=== PATIENT | male | born 1960 | race Caucasian/White ===

== ENCOUNTER → 2017-08-08 | Outpatient (CLI) | payer BC ==
[~2017-08-08] MED LIST: ASPI325T39 PO; INDO-24 PO; PROB1TAB16 PO
[2017-08-08 13:03] LABS: BASO % 0.5 %; BASO ABS # 0.05 K/uL (0-0.2); COMPLETE YES; EOS % 4.1 %; HEMATOCRIT 49.2 % (42-52); IG% 0.3 %; LYMPH ABS # 1.64 K/uL (1.2-3.4); MEAN CELL VOLUME 95.9 fL (80-100); MEAN CORPUSCULAR HEMOGLOBIN 34.1 pg (25-34); MEAN CORPUSCULAR HGB CONC 35.6 g/dl (32-36); MEAN PLATELET VOLUME 10.2 fL (7.4-10.4); MONO % 11.8 %; NEUT % 67.3 %; PLATELET COUNT 324 K/uL (130-400); RED BLOOD COUNT 5.13 M/uL (4.7-6.1); WHITE BLOOD COUNT 10.27 K/uL (4.8-10.8)
[2017-08-08 13:22] LABS: ALT/SGPT 37 U/L (12-78); BLOOD UREA NITROGEN 20 mg/dl (7-18); BUN/CREATININE RATIO 20.1 (10-20); CALCIUM 9.6 mg/dl (8.5-10.1); CARBON DIOXIDE 26 mmol/L (21-32); CHLORIDE 104 mmol/L (98-107); CREATININE 0.99 mg/dl (0.60-1.40); GLUCOSE 116 mg/dl (70-99); POTASSIUM 4.4 mmol/L (3.5-5.1); SODIUM 139 mmol/L (136-145)
[2017-08-08 13:31] LABS: ALB/GLOB RATIO 1.1 (0.9-2); ALKALINE PHOSPHATASE 60 U/L (45-117); AST/SGOT 33 U/L (15-37); TOTAL IRON BINDING CAPACITY 380 mcg/dl (250-450)
== END | disposition home or self-care (01) ==
LOC: C.LAB1850 11:21
PROVIDERS: ATTEND Physician Assistant
DX: Z00.00 Encounter for general adult medical examination without abnormal findings (principal); R53.81 Other malaise

== ENCOUNTER 2019-04-06 19:29 | Inpatient (IN) ==
[2019-04-06] MEDS ORDERED: PIPERACILLIN/TAZOBACTAM 4.5 GM/120 ML BAG IV ONE (20:28)
[2019-04-06] MEDS ORDERED: PIPERACILL/TAZOBAC CONSULT ACTIVE PRN (20:28)
[2019-04-06] MEDS ORDERED: SODIUM CHLORIDE 0.9% 1000ML 1,000 ML IV SCH (20:30)
--- NOTE | 2019-04-06 21:31 | Emergency Department Note ---
Entered by Dariana Reynoso acting as a scribe for Steven Erickson MD History of Present Illness General Chief complaint: Referred by Doctor Stated complaint: SENT FOR ANTIBIOTIC IV Time Seen by Provider: 04/06/19 20:11 Source: patient History of Present Illness Provider complaint: abdominal pain Onset (ago): day(s) 6 Location: abdomen (left lower) Severity: severe Maximum Pain Intensity: 4 Relieved By: + medication (Tylenol) Associated symptoms: + diaphoresis, + fever/chills (+chills, -fever) and + other (+hematuria, +loss of appetite) The patient is a 58 year old male who presents to the Emergency Room with complaints of left lower abdominal pain. The patient states that he was referred by Dr. Caraballo for his CAT scan that showed that he had diverticulitis with an abscess. The patient states that on Tuesday night he had severe abdominal pain. The states that on Tuesday he did not leave his bed because of the pain. The patient reports that he was not able to urinate often at this time, but when he did he had blood in his urine. The patient notes that he had a loss of appetite, chills, and diaphoresis. He denies any fever. The patient states that today his pain is duller. The patient states that he has chronic swelling in his legs. He reports that he has a history of appendectomy and a hip replacement surgery. The patient reports that Tylenol relieves his pain. Home Medications Home Medications Medication Instructions Recorded Confirmed Type multivitamin 1 tab PO DAILY 04/06/19 04/06/19 History Allergies Allergy/AdvReac Type Severity Reaction Status Date / Time No Known Allergies Allergy Verified 04/06/19 20:56 Past Med/Surg History Surgical History History of hip replacement Hx of appendectomy Social History Feels Safe at Home: Yes Smoking Status: Current every day smoker Review of Systems See HPI for pertinent positives & negatives. and A total of 10 systems reviewed and were otherwise negative Physical Exam Vital Signs Vital Signs - 24 hr 04/06/19 19:34 04/06/19 21:58 Temperature 37.4 C Temperature Source Oral Sepsis Recent Fever Within 48 Hours No Sepsis Action Taken by Nursing No Action Required Pulse Rate 101 H Pulse Rate [Right Finger] 85 Respiratory Rate 16 Respiratory Effort / Characteristics Non-Labored Spontaneous Respiratory Depth Normal Blood Pressure 139/93 Blood Pressure [Left Arm] 162/106 H Blood Pressure Mean 108 Blood Pressure Mean [Left Arm] 124 Blood Pressure Position Sitting Pulse Oximetry 95 95 Oxygen Delivery Method Room Air General: Non-ill appearing middle aged male in no acute distress. HEENT: Normal cephalic atraumatic. Pupils are equal round and reactive to light. Extraocular movements are intact. Oropharynx is pink with moist mucous membranes. No swelling of the mouth lips or tongue. Neck: Supple with a midline trachea. No meningeal signs or stiffness, no JVD or bruits. No Stridor. Chest: Clear to auscultation bilaterally. No wheezes or rhonchi. No increased work of breathing. Heart: regular rate and rhythm. Abdomen: Moderate tenderness in left lower abdomen without peritonitis, nondistended without rebound guarding or rigidity. Extremities: No cyanosis clubbing or edema. No calf tenderness or asymmetry Spine/Back. Non tender to palpation. No CVA tenderness Skin: Good turgor without rashes. Neurologic exam: Cranial nerves two through 12 are intact. Motor and sensation are intact and symmetrical throughout. Course 2013: The patient was evaluated in room A9A, and a complete history and physical examination were performed. 2039: I discussed the patient's results with Dr. Ibrahim [facility] Radiology and he stated that the abscess did not required to be drained. He recommended more antibiotics. 2104: I reviewed the patient's [facility] He will evaluate the patient for further management. Reevaluation(s) Reevaluation #1: Dr. Ibrahim [facility] Radiology Time: 20:40 Reevaluation #2: Dr. Lopez [facility] Hospitalist Time: 21:05 Administered Medications Discontinued Medications Sodium Chloride (Nss 1000ml) 1,000 mls @ 999 mls/hr IV .Q1H1M HEIDI Stop: 04/06/19 21:30 Last Infusion: 04/06/19 22:09 Dose: 0 mls/hr Documented by: [id number] Admin: 04/06/19 21:01 Dose: 999 mls/hr Documented by: [id number] Piperacillin Sod/Tazobactam Sod (Zosyn) 4.5 gm in 120 mls @ 240 mls/hr IV NOW ONE Stop: 04/06/19 20:57 Last Infusion: 04/06/19 21:34 Dose: 0 mls/hr Documented by: [id number] Admin: 04/06/19 21:01 Dose: 240 mls/hr Documented by: [id number] Medical Decision Making Differential Diagnosis Differentials include diverticulitis, diverticular abscess, sepsis, electrolyte abnormalities, and metabolic derangement. Medical Records Attestation: I reviewed the patient's medical records. Home Medications Current Medication List: was personally reviewed by me Laboratory Data Attestation: I reviewed the patient's lab results. Lab Results 04/06/19 Range/Units 20:33 Lactate 1.0 (0.4-2.0) mmol/L Blood Pressure Blood Pressure Findings: Normal blood pressure MDM Narrative This patient comes in as described above. He was placed in room 89. He was sent over after his CAT scan showed diverticulitis with diverticular abscess. He had abdominal pain about 5 days or so ago and it was severe he was out of town he feels much better now and has some mild lower abdominal pain is had no fever. On exam, he has lower abdominal tenderness in the left but no peritonitis. The tenderness is mild. He does have a mildly elevated white count but no fever. I did review the CAT scan it does show diverticulitis with an abscess about 2 cm there may be multiple small abscess. This is concerning for microperforation. I did discuss the case with the radiologist who felt that this was not interventional radiology drainage as the area was small. I did discuss it with the ED pharmacist, Adri who recommended Zosyn and the patient was given Zosyn 4.5 g IV. He was given IV fluid bolus. Blood cultures were obt ained as well. I have discussed case with Dr. Jain who will see the patient in the ER for admission and IV antibiotics. Impression & Plan Diverticulitis of intestine with abscess, Abdominal pain, left lower quadrant Discharge Plan Visit Data Chief Complaint: Referred by Doctor Stated Complaint: SENT FOR ANTIBIOTIC IV ED Provider: Steven Erickson Discharge Problem: Diverticulitis of intestine with abscess, Abdominal pain, left lower quadrant Patient Disposition: Being Evaluated by Hospitalist Forms Stand Alone Forms: My [facility] [email or web address] Prescriptions Prescriptions: No Action multivitamin Tablet 1 tab PO DAILY RF: 0 Referrals Referrals: Rojelio Cope MD [Primary Care Provider] - Discharge Problem: Diverticulitis of intestine with abscess Qualifiers: Diverticulitis site: large intestine Diverticulitis bleeding: without bleeding Qualified Code(s): K57.20 - Diverticulitis of large intestine with perforation and abscess without bleeding The scribe's documentation has been prepared under my direction and personally reviewed by me in its entirety. I confirm that the note above accurately reflects all work, treatment, procedures, and medical decision making performed by me.
[2019-04-07] MEDS ORDERED: ACETAMINOPHEN 1000 MG/100 ML IV IV PRN (00:12)
[2019-04-07] MEDS ORDERED: PIPERACILL/TAZOBAC CONSULT ACTIVE PRN (00:12)
[2019-04-07] MEDS ORDERED: ONDANSETRON INJ 2 MG/ML 2 ML VIAL IV PRN (00:12)
[2019-04-07] MEDS: PIPERACILLIN/TAZOBACTAM 3.375 GM in DEXTROSE 5% 100 ML IV SCH ×3 (01:25→17:52)
[2019-04-07] MEDS: NSS + 20MEQ KCL 20 MEQ/1,000 ML BAG IV SCH ×3 (01:25→22:22)
[2019-04-07] MEDS: NICOTINE 14 MG/24 HR PATCH TD SCH (01:52)
--- NOTE | 2019-04-07 05:10 | History & Physical Report ---
Date of Service April 07, 2019 The patient was seen and admitted on April 06, 2019. Assessment & Plan (1) Diverticulitis of intestine with abscess: Acute sigmoid diverticulitis with multiple micro abscesses/left lower quadrant abdominal pain- NPO Continue Zosyn IV, and add Flagyl IV. Famotidine 20 mg IV every 12 hours. Acetaminophen 1 g IV every 8 hours PRN mild pain or temperature. Morphine sulfate 2 mg IV every 4 hours as needed severe pain NSS + KCl 20 mg once at her mils per hour. Follow serial laboratories. We will need general surgery consult. Present on Admission?: Yes (2) Abdominal pain, left lower quadrant: See above Present on Admission?: Yes History of Present Illness Chief Complaint: The patient presents to the emergency department with 6 days of worsening left lower quadrant abdominal discomfort, especially worsening over the past 24 hours. Primary Care Provider: Rojelio Cope MD The patient is a 58-year-old male who was seen by his PCP Dr. Cope earlier in the day, had been found to have sigmoid diverticulitis with an abscess on outpatient CT, and referred into the emergency department for further evaluation assessment. The patient notes the onset of abdominal pain in his left lower quadrant about 6 days ago, but had in particular worsened over the past 24 hours, and more recently now pain is somewhat improved prior to treatment. He has had no previous occurrence this type of pain. He has not had any recent travels or sick exposures, and has not had any questionable food intake. 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 Beliefs That Will Affect Care: None Current Living Situation: Spouse Other Information That Helps Us Care for You: No Feels Safe at Home: Yes Safety Concerns: Feels Safe At This Time Smoking Status: Heavy tobacco smoker Tobacco Type: cigarettes Do You Dip or Chew Tobacco: No Tobacco Cessation Education Requested by Patient: No Hx Alcohol Use: Yes Alcohol type: beer Hx Substance Use: No Review of Systems Review of Systems: The patient denies chest pain, palpitations, shortness of breath, dyspnea on exertion, cough, lower extremity swelling, sore throat, fevers, chills, sweats, weight change, fatigue, nausea, vomiting, blood in urine or stool, dysuria, urinary frequency or urgency, lightheadedness, dizziness, headache, memory loss, loss of consciousness, rash, abnormal bruising or bleeding, imbalance, focal or generalized weakness, numbness or tingling in arms or legs, generalized arthralgias or myalgias, back or neck pain, or night sweats. The review of systems is otherwise negative other than for that already noted above, and at least 10 systems have been reviewed. Physical Exam Physical Exam: The patient is awake, alert and oriented 3, well developed and well nourished, normocephalic and atraumatic, lying in bed and in no acute distress. HEENT--PERRL, EOMI, mucous membranes and oropharynx dry. Neck--supple. No JVD. No bruits. Thyroid normal, trachea midline, no adenopathy. Heart--normal S1 and S2. No murmurs, rubs or gallops. Lungs--clear bilaterally, no respiratory distress, no accessory muscle use. Abdomen--normal bowel sounds and soft. Mild left lower quadrant pain. Nondistended. Extremities--no cyanosis or clubbing. No edema. There are good distal pulses b/l. Dermatologic--normal skin turgor, normal color, no abnormal lymph nodes, no rash. Neurologic--cranial nerves II through XII grossly intact. Rheumatologic--normal range of motion. Psychiatric--normal affect. Results & Data Vital Signs (Past 12 Hours) Vital Signs Temp Pulse Pulse Resp BP BP Pulse Ox 04/07/19 00:25 99.0 F 86 14 135/87 94 04/06/19 23:35 95 04/06/19 21:58 85 162/106 H 95 04/06/19 19:34 99.3 F 101 H 16 139/93 95 Laboratory Results Laboratory Results 1.0 mmol/L (0.4-2.0) 04/06/19 20:33 Code Status & VTE Plan Code Status Full code VTE Prophylaxis Plan VTE Prophylaxis will be ordered: Yes (1) Diverticulitis of intestine with abscess Diverticulitis bleeding: without bleeding Diverticulitis site: large intestine Qualified Code(s): K57.20 - Diverticulitis of large intestine with perforation and abscess without bleeding
[2019-04-07] MEDS: metroNIDAZOLE 500 MG/100 ML BAG IV SCH ×2 (05:55→13:27)
[2019-04-07 07:48] LABS: Basophils # (auto) 0.05 K/uL (0-0.2); Basophils % (auto) 0.4 %; Eosinophils # (auto) 0.47 K/uL (0-0.5); Eosinophils % (auto) 3.8 %; Hematocrit (blood only) 41.4 % (42-52); Hemoglobin 14.4 g/dL (14.0-18.0); Immature Granulocytes # (auto) 0.07 K/uL (0.00-0.02); Immature Granulocytes % (auto) 0.6 %; Lymphocytes # (auto) 1.12 K/uL (1.2-3.4); Mean Corpuscular Hgb Conc 34.8 g/dL (32-36); Mean Corpuscular Volume 96.3 fL (80-100); Mean Platelet Volume 8.8 fL (7.4-10.4); Monocytes # (auto) 1.74 K/uL (0.11-0.59); Neutrophils # (auto) 8.99 K/uL (1.4-6.5); Neutrophils % (auto) 72.2 %; Platelet Count 368 K/uL (130-400); RDW Coefficient of Variation 13.8 % (11.5-14.5); RDW Standard Deviation 48.6 fL (36.4-46.3); White Blood Count 12.44 K/uL (4.8-10.8)
[2019-04-07 08:05] LABS: INR 1.1 (0.9-1.1); Partial Thromboplastin Time 26.2 Seconds (21.0-31.0); Prothrombin Time 10.9 Seconds (9.0-12.0)
--- NOTE | 2019-04-07 08:13 | Hospitalist Progress Note ---
Date of Service April 07, 2019 Assessment & Plan (1) Diverticulitis of intestine with abscess: Acute sigmoid diverticulitis with micro abscesses/left lower quadrant abdominal pain- Will ice chips Continue Zosyn IV, Famotidine 20 mg IV every 12 hours. Acetaminophen 1 g IV every 8 hours PRN mild pain or temperature. Morphine sulfate 2 mg IV every 4 hours as needed severe pain (2) Abdominal pain, left lower quadrant: See above improving Subjective Vision feels slightly improved less left lower quadrant pain is tolerant of some clear liquid intake Review of Systems Review of Systems: ROS: well nourished well developed. No double vision blurry vision No problems with speech or swallowing No palpitations, chest pain or pressure No Wheezing or breathing issues Minor left lower quadrant abdominal pain has had no nausea vomiting or diarrhea No burning urine urine frequency or changes in color No focal joint pain or muscle pain No skin rashes or oral lesions No unusual bruising or bleeding No focused back pain or numbness or loss of strength No changes in memory or confusion Physical Exam Physical Exam: The patient appeared well nourished and normally developed. Vital signs as documented. Head exam is unremarkable. normocephalic, atraumatic Neck is without jugular venous distension, thyromegaly, or lymphademopathy Lungs are clear to auscultation and percussion. Cardiac exam reveals Rhythm is regular. First and second heart sounds normal. Abdominal exam reveals minor left lower quadrant tenderness, normal bowel sounds, no masses, no organomegaly no rebound no guarding Extremities are nonedematous and both pedal pulses are present Neurologic exam is A&Ox3, no focal deficits, strength is equal bilateral Psychologically seems neither anxious or depressed Skin is warm Dry without bruises or lesions Results & Data Vital Signs (Past 12 Hours) Vital Signs Temp Pulse Resp BP Pulse Ox 04/07/19 07:39 36.8 C 85 16 139/76 95 04/07/19 00:25 37.2 C 86 14 135/87 94 04/06/19 23:35 95 04/06/19 21:58 85 162/106 H 95 (1) Diverticulitis of intestine with abscess Diverticulitis bleeding: without bleeding Diverticulitis site: large intestine Qualified Code(s): K57.20 - Diverticulitis of large intestine with perforation and abscess without bleeding
[2019-04-07 08:18] LABS: Albumin Level 2.6 gm/dl (3.4-5.0); BUN Creatinine Ratio 12.1 (10-20); Creatinine Clr Calc Pharmacy 124.4 ml/min; Est GFR (African American) 120.6; Potassium 3.8 mmol/L (3.5-5.1)
[2019-04-07 08:22] LABS: Albumin Globulin Ratio 0.7 (0.9-2); Bilirubin,Total 0.8 mg/dl (0.2-1); Globulin 3.9 gm/dl (2.5-4.0); Total Protein 6.5 gm/dl (6.4-8.2)
[2019-04-07] MEDS ORDERED: NICOTINE 14 MG/24 HR PATCH TD SCH (09:00)
[2019-04-07] MEDS: FAMOTIDINE 20 MG in SYRINGE 3 ML IV SCH ×2 (09:19→21:57)
[2019-04-08] MEDS: PIPERACILLIN/TAZOBACTAM 3.375 GM in DEXTROSE 5% 100 ML IV SCH (02:16)
[2019-04-08 07:28] LABS: Basophils # (auto) 0.05 K/uL (0-0.2); Basophils % (auto) 0.4 %; Eosinophils # (auto) 0.37 K/uL (0-0.5); Eosinophils % (auto) 2.8 %; Hematocrit (blood only) 43.6 % (42-52); Immature Granulocytes % (auto) 0.8 %; Lymphocytes # (auto) 1.39 K/uL (1.2-3.4); Lymphocytes % (auto) 10.5 %; Mean Corpuscular Hgb Conc 34.4 g/dL (32-36); Mean Corpuscular Volume 97.1 fL (80-100); Mean Platelet Volume 9.1 fL (7.4-10.4); Monocytes # (auto) 1.71 K/uL (0.11-0.59); Monocytes % (auto) 12.9 %; Neutrophils # (auto) 9.65 K/uL (1.4-6.5); Neutrophils % (auto) 72.6 %; Platelet Count 397 K/uL (130-400); RDW Coefficient of Variation 13.5 % (11.5-14.5); RDW Standard Deviation 48.6 fL (36.4-46.3); Red Blood Count 4.49 M/uL (4.7-6.1); White Blood Count 13.27 K/uL (4.8-10.8)
[2019-04-08 07:37] LABS: INR 1.1 (0.9-1.1); Prothrombin Time 11.3 Seconds (9.0-12.0)
[2019-04-08] MEDS: NSS + 20MEQ KCL 20 MEQ/1,000 ML BAG IV SCH ×2 (07:58→20:49)
[2019-04-08] MEDS: NICOTINE 14 MG/24 HR PATCH TD SCH (08:00)
[2019-04-08 08:04] LABS: Albumin Level 2.7 gm/dl (3.4-5.0); BUN Creatinine Ratio 10.9 (10-20); Calcium 9.1 mg/dl (8.5-10.1); Creatinine Clr Calc Pharmacy 116.1 ml/min; Est GFR (African American) 117.2; Est GFR (Non-African American) 101.1; Potassium 3.9 mmol/L (3.5-5.1)
[2019-04-08 08:07] LABS: Albumin Globulin Ratio 0.7 (0.9-2); Bilirubin,Total 0.7 mg/dl (0.2-1); Globulin 4.1 gm/dl (2.5-4.0); Total Protein 6.8 gm/dl (6.4-8.2)
[2019-04-08] MEDS: metroNIDAZOLE 500 MG/100 ML BAG IV SCH ×2 (08:31→17:16)
[2019-04-08] MEDS: CIPROFLOXACIN 400 MG/200 ML BAG IV SCH ×2 (09:46→20:38)
[2019-04-08] MEDS: FAMOTIDINE 20 MG in SYRINGE 3 ML IV SCH ×2 (09:46→20:38)
--- NOTE | 2019-04-08 13:22 | Hospitalist Progress Note ---
Date of Service April 08, 2019 Assessment & Plan (1) Diverticulitis of intestine with abscess: Acute sigmoid diverticulitis with micro abscesses/left lower quadrant abdominal pain- Patient had minor elevation of his white count since stopping Flagyl we will convert him to Cipro Flagyl in lieu of the Zosyn Famotidine 20 mg IV every 12 hours. Acetaminophen 1 g IV every 8 hours PRN mild pain or temperature. Morphine sulfate 2 mg IV every 4 hours as needed severe pain Since symptoms have improved will advance to full liquid diet (2) Abdominal pain, left lower quadrant: See above improving Subjective Patient feels his abdominal pain is improving every day. He only has pain with palpation and with some walking. He is tolerant of ice chips will progress him to full liquid diet. Otherwise he has no complaints or problems Review of Systems Review of Systems: ROS: well nourished well developed. No double vision blurry vision No problems with speech or swallowing No palpitations, chest pain or pressure No Wheezing or breathing issues Minor left lower quadrant abdominal pain which is dull, no nausea vomiting no diarrhea but having loose bowel movements No burning urine urine frequency or changes in color No focal joint pain or muscle pain No skin rashes or oral lesions No unusual bruising or bleeding No focused back pain or numbness or loss of strength No changes in memory or confusion Physical Exam Physical Exam: The patient appeared well nourished and normally developed. Vital signs as documented. Head exam is unremarkable. normocephalic, atraumatic Neck is without jugular venous distension, thyromegaly, or lymphademopathy Lungs are clear to auscultation and percussion. Cardiac exam reveals Rhythm is regular. First and second heart sounds normal. Abdominal exam reveals normal bowel sounds, mild tenderness to palpation left lower quadrant without rebound or guarding Extremities are nonedematous and both pedal pulses are present Neurologic exam is A&Ox3, no focal deficits, strength is equal bilateral Psychologically seems neither anxious or depressed Skin is warm / Dry Results & Data Vital Signs (Past 12 Hours) Vital Signs Temp Pulse Resp BP Pulse Ox 04/08/19 07:09 36.4 C L 81 16 138/84 94 (1) Diverticulitis of intestine with abscess Diverticulitis bleeding: without bleeding Diverticulitis site: large intestine Qualified Code(s): K57.20 - Diverticulitis of large intestine with perforation and abscess without bleeding
[2019-04-09] MEDS: metroNIDAZOLE 500 MG/100 ML BAG IV SCH ×4 (00:12→23:05)
[2019-04-09] MEDS: NSS + 20MEQ KCL 20 MEQ/1,000 ML BAG IV SCH ×3 (01:48→23:05)
[2019-04-09 06:56] LABS: Basophils # (auto) 0.03 K/uL (0-0.2); Basophils % (auto) 0.2 %; Eosinophils # (auto) 0.39 K/uL (0-0.5); Eosinophils % (auto) 2.8 %; Hematocrit (blood only) 43.2 % (42-52); Hemoglobin 14.8 g/dL (14.0-18.0); Immature Granulocytes # (auto) 0.19 K/uL (0.00-0.02); Immature Granulocytes % (auto) 1.4 %; Mean Corpuscular Hgb Conc 34.3 g/dL (32-36); Mean Corpuscular Volume 96.4 fL (80-100); Mean Platelet Volume 8.8 fL (7.4-10.4); Monocytes # (auto) 1.47 K/uL (0.11-0.59); Monocytes % (auto) 10.6 %; Platelet Count 402 K/uL (130-400); RDW Coefficient of Variation 13.5 % (11.5-14.5); RDW Standard Deviation 48.3 fL (36.4-46.3); Red Blood Count 4.48 M/uL (4.7-6.1); White Blood Count 13.88 K/uL (4.8-10.8)
[2019-04-09 07:03] LABS: INR 1.2 (0.9-1.1); Prothrombin Time 11.9 Seconds (9.0-12.0)
[2019-04-09 07:22] LABS: Albumin Level 2.8 gm/dl (3.4-5.0); BUN Creatinine Ratio 8.6 (10-20); Calcium 8.9 mg/dl (8.5-10.1); Creatinine Clr Calc Pharmacy 104.9 ml/min; Est GFR (African American) 112.4; Magnesium 2.1 mg/dl (1.8-2.4); Potassium 4.3 mmol/L (3.5-5.1)
[2019-04-09 07:24] LABS: Albumin Globulin Ratio 0.7 (0.9-2); Bilirubin,Total 0.6 mg/dl (0.2-1); Globulin 4.1 gm/dl (2.5-4.0); Total Protein 6.9 gm/dl (6.4-8.2)
[2019-04-09] MEDS: NICOTINE 14 MG/24 HR PATCH TD SCH (08:11)
[2019-04-09] MEDS: CIPROFLOXACIN 400 MG/200 ML BAG IV SCH ×2 (08:12→19:29)
[2019-04-09] MEDS: FAMOTIDINE 20 MG in SYRINGE 3 ML IV SCH ×2 (08:17→20:42)
--- NOTE | 2019-04-09 13:27 | Hospitalist Progress Note ---
Date of Service April 09, 2019 Assessment & Plan (1) Diverticulitis of intestine with abscess: Acute sigmoid diverticulitis with micro abscesses/left lower quadrant abdominal pain- Patient had minor elevation of his white count since stopping Flagyl we will convert him to Cipro Flagyl in lieu of the Zosyn Famotidine 20 mg IV every 12 hours. Acetaminophen 1 g IV every 8 hours PRN mild pain or temperature. Morphine sulfate 2 mg IV every 4 hours as needed severe pain Since symptoms have improved will advance to full liquid diet. On 04/09, patient had improved on cipro and flagyl. Patient though is having increased WBC. Will repeat ct scan and obtain gen surg consult. Will hold discharge. will recheck labs in AM. (2) Abdominal pain, left lower quadrant: See above improving Spent 35 minutes in management of patient.This included discussion with gen surg Subjective Patient reports feeling better. He is tolerating his diet. He also reports having a bowel movement . He also reports he had an episode of hematuria as an outpatient. Will have him be evaluated by urology as an outpatient Review of Systems Review of Systems: ROS: well nourished well developed. No double vision blurry vision No problems with speech or swallowing No palpitations, chest pain or pressure No Wheezing or breathing issues Minor left lower quadrant abdominal pain which is dull, no nausea vomiting no diarrhea but having loose bowel movements No burning urine urine frequency or changes in color No focal joint pain or muscle pain No skin rashes or oral lesions No unusual bruising or bleeding No focused back pain or numbness or loss of strength No changes in memory or confusion Physical Exam Physical Exam: The patient appeared well nourished and normally developed. Vital signs as documented. Head exam is unremarkable. normocephalic, atraumatic Neck is without jugular venous distension, thyromegaly, or lymphademopathy Lungs are clear to auscultation and percussion. Cardiac exam reveals Rhythm is regular. First and second heart sounds normal. Abdominal exam reveals normal bowel sounds, mild tenderness to palpation left lower quadrant without rebound or guarding Extremities are nonedematous and both pedal pulses are present Neurologic exam is A&Ox3, no focal deficits, strength is equal bilateral Psychologically seems neither anxious or depressed Skin is warm / Dry Results & Data Vital Signs (Past 12 Hours) Vital Signs Temp Pulse Resp BP Pulse Ox 04/09/19 12:30 36.9 C 78 20 142/88 H 97 04/09/19 07:55 36.9 C 90 18 130/88 95 (1) Diverticulitis of intestine with abscess Diverticulitis bleeding: without bleeding Diverticulitis site: large intestine Qualified Code(s): K57.20 - Diverticulitis of large intestine with perforation and abscess without bleeding
--- NOTE | 2019-04-09 16:58 | Surgery Consultation ---
Date of Consultation April 09, 2019 Assessment & Plan (1) Diverticulitis of intestine with abscess: Complicated diverticulitis with multiple small pericolonic abscesses. Admitted on 04/06/19 with 6 day history of pain. Leukocyotosis 12K on admission, continues to slowly rise despite IV Abx treatment however clinically improving. Currently on IV Cipro and Flagyl. No prior history of diverticulitis. Last colonoscopy "many years ago". Leukocytosis of 13K today. Repeat CT scan of abdomen and pelvis ordered for today. Abdomen is soft, nondistended, minimally tender in LLQ. Plan: Continue conservative measures for now. No acute surgical intervention required. Await results of repeat CT scan, may need to change IV Abx regimen if there is progression of diverticulitis and abscesses or may need IR drainage if abscesses amenable to drainage. Discussed possible need for colon resection if there is progression of disease and patient were to become unstable however do not feel this will be the case. Continue IV Cipro and Flagyl for now Continue full liquids Continue medical management Will need outpatient colonoscopy in 6-[address] Anderson has seen and examined patient, please see addendum for further recommendations/plan. Supervising Physician Co-Signing Physician Notes I have seen and evaluated the patient and reviewed the medical record. I agree with the documentation as provided in this note by Dulce Gonzales PA-C. 58 yo male admitted with diverticulitis and clinically doing well, states he feels much better. However, there has been no improvement in WBC despite IV abx. Repeat CT scan was pending at the time of consult. We will follow up on these results, but continue IV abx at this time. If there is progression of disease may need to consider changing abx coverage, or if abscess has developed may need to assess if amenable to drainage. No acute surgical intervention at this time. Will continue to follow. Will need a colonoscopy as an outpatient once acute episode has resolved. History of Present Illness Reason for Consultation: Diverticulitis with abscess, increasing leukocytosis Requesting Physician: Rudy Khanna Attending Physician: Rudy Khanna History of Present Illness Pietro is a pleasant 58 year-old male who presented to emergency department on 04/06/2019 with complaint of increasing left lower quadrant abdominal pain for th e past 24 hours. States he had left lower abdominal pain about 6 days prior to admission and was out of state visiting his daughter in which gianni pain became very bad and "I thought I was going to ". Pain improved and then he started having increasing pain again. Saw his PCP who ordered CT scan of the abdomen and pelvis which showed diverticulitis with abscess. He was advised to go to emergency room for further evaluation and management. He had leukocytosis of 12K on admission. He was started on IV Zosyn and Flagyl which then was converted to IV Cipro and Flagyl. His pain has been improving each day and he is feeling better however his white count increased while on IV antibiotics. Our services consulted given rise in leukocytosis to 13.88K today (13.27 yesterday). [address] scan of abdomen and pelvis with PO and IV contrast has been ordered to evaluate for any progression of diverticulitis and abscesses. Pietro states he is feeling good today. Tolerating full liquids. Has had a bowel movement. Currently drinking oral contrast for CT scan. Just finished walking in hallway. Feeling much better compared to when he presented to hospital. Allergies Allergy/AdvReac Type Severity Reaction Status Date / Time No Known Allergies Allergy Verified 04/06/19 20:56 Home Medications Home Medications Medication Instructions Recorded Confirmed Type multivitamin 1 tab PO DAILY 04/06/19 04/06/19 History ciprofloxacin HCl 500 mg PO Q12H #14 tab 04/09/19 Rx metronidazole 500 mg PO Q8H 7 Days #21 tab 04/09/19 Rx Patient History Surgical History History of hip replacement Hx of appendectomy Social History Preferred Language: Setswana Communication Ability: Effective Communication Ability Comment: wnl Coverage Analyst Required: No Beliefs That Will Affect Care: None Current Living Situation: Spouse Other Information That Helps Us Care for You: No Feels Safe at Home: Yes Safety Concerns: Feels Safe At This Time Smoking Status: Heavy tobacco smoker Tobacco Type: cigarettes Do You Dip or Chew Tobacco: No Tobacco Cessation Education Requested by Patient: No Hx Alcohol Use: Yes Alcohol type: beer Hx Substance Use: No Review of Systems Review of Systems: All systems reviewed & are unremarkable except as noted in HPI & below Physical Exam Constitutional: WD/WN, vitals as above no acute distress and not ill appearing Respiratory: normal respiratory effort; no respiratory distress Gastrointestinal (Abdomen): Inspection/Auscultation: abdomen normal to inspec tion; abdomen not distended Percussion/Palpation: + abdomen tender (mild tenderness in LLQ) and abdomen soft; no guarding and abdomen not rigid Skin: no rashes, warm and dry Psychiatric: A+Ox3, euthymic affect Results & Data Vital Signs (Past 12 Hours) Vital Signs Temp Pulse Pulse Resp BP Pulse Ox 04/09/19 15:14 36.8 C 90 18 145/86 H 94 04/09/19 12:30 36.9 C 78 20 142/88 H 97 04/09/19 07:55 36.9 C 90 18 130/88 95 Laboratory Results 04/09/19 04/09/19 04/09/19 Range/Units 06:33 06:33 06:33 WBC 13.88 H (4.8-10.8) K/uL RBC 4.48 L (4.7-6.1) M/uL Hgb 14.8 (14.0-18.0) g/dL Hct 43.2 (42-52) % MCV 96.4 (80-100) fL MCH 33.0 (25-34) pg MCHC 34.3 (32-36) g/dL RDW Std Deviation 48.3 H (36.4-46.3) fL RDW Coeff of Aiyana 13.5 (11.5-14.5) % Plt Count 402 H (130-400) K/uL MPV 8.8 (7.4-10.4) fL Immature Gran % (Auto) 1.4 % Neut % (Auto) 72.0 % Lymph % (Auto) 13.0 % [place] % (Auto) 10.6 % Eos % (Auto) 2.8 % Baso % (Auto) 0.2 % Immature Gran # (Auto) 0.19 H (0.00-0.02) K/uL Neut # (Auto) 10.00 H (1.4-6.5) K/uL Lymph # (Auto) 1.80 (1.2-3.4) K/uL [place] # (Auto) 1.47 H (0.11-0.59) K/uL Eos # (Auto) 0.39 (0-0.5) K/uL Baso # (Auto) 0.03 (0-0.2) K/uL PT 11.9 (9.0-12.0) Seconds INR 1.2 H (0.9-1.1) Sodium 138 (136-145) mmol/L Potassium 4.3 (3.5-5.1) mmol/L Chloride 104 (98-107) mmol/L Carbon Dioxide 28 (21-32) mmol/L Anion Gap 6.0 (3-11) BUN 7 (7-18) mg/dl Creatinine 0.83 (0.6-1.4) mg/dl Est Cr Clr Drug Dosing 104.9 ml/min Est GFR ( Amer) 112.4 Est GFR (Non-Af Amer) 97.0 BUN/Creatinine Ratio 8.6 L (10-20) Glucose 99 (70-99) mg/dl Calcium 8.9 (8.5-10.1) mg/dl Magnesium 2.1 (1.8-2.4) mg/dl Total Bilirubin 0.6 (0.2-1) mg/dl AST 16 (15-37) U/L ALT 25 (12-78) U/L Alkaline Phosphatase 55 (45-117) U/L Total Protein 6.9 (6.4-8.2) gm/dl Albumin 2.8 L (3.4-5.0) gm/dl Globulin 4.1 H (2.5-4.0) gm/dl Albumin/Globulin Ratio 0.7 L (0.9-2) Diagnostic Findings CT abd pelvis oral and IV con CLINICAL HISTORY: Abdominal pain, LLQ (left lower quadrant) COMPARISON STUDY: None. TECHNIQUE: The patient was scanned following administration of dilute oral contrast, and in a dynamic helical fashion during intravenous administration of xx cc of Optiray 320. A dose lowering technique was utilized adhering to the principles of ALARA. CT DOSE: 864.08 mGycm FINDINGS: Lower chest: There is a left-sided diaphragmatic hernia containing a small portion of spleen. The neck of the hernia measures 38 mm in diameter. There is left basilar atelectatic change. Liver: The contrast-enhanced liver is normal in size, contour, and attenuation. There is no intrahepatic biliary ductal dilatation. The hepatic veins and portal veins are patent. Gallbladder: Unremarkable. Spleen: There is a 7 mm left splenic hypodensity. A portion of the spleen herniates through a left diaphragmatic hernia into the base of the left chest Pancreas: Unremarkable. Adrenal glands: Unremarkable. Kidneys: There are left renal parapelvic cysts. No solid renal masses are visualized. There is no significant hydronephrosis. Bowel: There are no transition zones indicate bowel obstruction. There is bowel wall thickening and infiltration the pericolonic fat within the proximal sigmoid colon. The findings are indicative of acute sigmoid diverticulitis. There are multiple adjacent mesenteric fluid collections consistent with multiple small abscesses. The largest measures 22 mm. Peritoneum: Multiple perisigmoid abscesses are visualized. There is no ascites. There is no free intraperitoneal air. Vasculature: The abdominal aorta is normal in course and caliber. Adenopathy: None. Pelvic viscera: The prostate appears enlarged. There is moderate bladder wall thickening likely secondary to chronic bladder outlet obstruction. Portions the pelvis are obscured due to beam hardening artifact from prior hip surgery. Skeletal structures: There is right iliopsoas muscle atrophy. There is bilateral L5 spondylolysis. There is a grade 1-2/4 spondylolisthesis of L5 and S1. IMPRESSION: 1. Acute sigmoid diverticulitis with multiple adjacent small abscesses measuring up to 22 mm in diameter 2. No evidence of bowel obstruction 3. Prostamegaly and bladder wall thickening 4. Left diaphragmatic hernia containing a small portion of the spleen. 5. This report will be called to the referring clinician. (1) Diverticulitis of intestine with abscess Diverticulitis bleeding: without bleeding Diverticulitis site: large intestine Qualified Code(s): K57.20 - Diverticulitis of large intestine with perforation and abscess without bleeding
[2019-04-09] MEDS ORDERED: IOVERSOL 100ml IV PRN (17:50)
--- NOTE | 2019-04-09 18:08 | CT Scan Report ---
ABDOMEN AND PELVIS CT WITH IV AND ORAL CONTRAST CT DOSE: 635.32 mGy.cm HISTORY: Lower abdominal pain. TECHNIQUE: Multiaxial CT images of the abdomen and pelvis were performed following the use of intrave nous and oral contrast. A dose lowering technique was utilized adhering to the principles of ALARA. COMPARISON STUDY: Abdomen and pelvis CT 04/06/2019. FINDINGS: Focal short segment of thickening within the mid sigmoid colon with pericolonic fat strandi ng consistent with acute sigmoid diverticulitis. A few scattered pericolonic abscesses are again note d. These are similar to the prior study. Dominant abscess measures 2.2 cm. Mild left-sided bladder wa ll thickening which may be reactive to the adjacent pericolonic inflammatory change. No pneumoperiton eum or pneumatosis at this time. No evidence for bowel obstruction. Left diaphragmatic defect/hernia containing a small portion of the spleen and this remains unchanged. Old, healed left-sided rib fract ures. Left basilar scar like densities are again noted. Postoperative changes within the bilateral hi ps. The liver, gallbladder, pancreas, kidneys, and adrenal glands are unremarkable. No hydronephrosis . No retroperitoneal lymphadenopathy. Fatty atrophy of the right iliopsoas muscle. IMPRESSION: 1. No significant change in the acute sigmoid diverticulitis with multiple adjacent small abscesses m easuring up to 2.2 cm. Follow-up colonoscopy is recommended once the diverticulitis has resolved to e xclude the less likely of an underlying colonic mass. 2. Mild bladder wall thickening. This may be reactive to the adjacent diverticulitis. 3. No change in the left diaphragmatic hernia containing a small portion of the spleen. This is likel y due to old posttraumatic changes given the adjacent rib fractures. Electronically signed by: Jerad Nickerson M.D. 04/09/2019 6:07 PM
[2019-04-10 06:31] LABS: Basophils # (auto) 0.05 K/uL (0-0.2); Basophils % (auto) 0.4 %; Eosinophils # (auto) 0.54 K/uL (0-0.5); Eosinophils % (auto) 3.9 %; Immature Granulocytes # (auto) 0.26 K/uL (0.00-0.02); Immature Granulocytes % (auto) 1.9 %; Lymphocytes # (auto) 2.06 K/uL (1.2-3.4); Lymphocytes % (auto) 14.7 %; Mean Corpuscular Hgb Conc 34.9 g/dL (32-36); Mean Corpuscular Volume 96.4 fL (80-100); Mean Platelet Volume 8.7 fL (7.4-10.4); Monocytes # (auto) 1.33 K/uL (0.11-0.59); Monocytes % (auto) 9.5 %; Neutrophils # (auto) 9.76 K/uL (1.4-6.5); Neutrophils % (auto) 69.6 %; Platelet Count 438 K/uL (130-400); RDW Coefficient of Variation 13.4 % (11.5-14.5); RDW Standard Deviation 47.6 fL (36.4-46.3); Red Blood Count 4.46 M/uL (4.7-6.1)
[2019-04-10] MEDS: FAMOTIDINE 20 MG in SYRINGE 3 ML IV SCH (07:52)
[2019-04-10] MEDS: CIPROFLOXACIN 400 MG/200 ML BAG IV SCH (07:52)
[2019-04-10] MEDS: metroNIDAZOLE 500 MG/100 ML BAG IV SCH ×2 (07:52→16:30)
[2019-04-10] MEDS ORDERED: NICOTINE 21 MG/24 HR TDSY TD SCH (09:00)
--- NOTE | 2019-04-10 09:45 | Progress Note ---
Date of Service April 10, 2019 Assessment & Plan (1) Diverticulitis of intestine with abscess: 58 yo male admitted with diverticulitis and clinically doing well, states he feels much better. However, there has been no improvement in WBC despite IV abx. Repeat CT scan was stable, and it is expected to take time for pelvic fluid to resolve. Clinically he looks great despite persistent WBC. - ID consult to plan for abx - Advance to low residue diet - Possible d/c today from surgical standpoint pending ID recommendations and if pt tolerates PO - f/u in general surgery clinic in 2 weeks - Colonoscopy as an outpatient once acute episode has resolved Diverticulitis bleeding: without bleeding Diverticulitis site: large intestine Qualified Code(s): K57.20 - Diverticulitis of large intestine with perforation and abscess without bleeding Subjective Pt states he feels great today, denies any abdominal pain or nausea. Is severino ating a diet. Repeat CT scan yesterday was unchanged. WBC remains stable at ~14. Physical Exam Constitutional: no acute distress Respiratory: normal respiratory effort Cardiovascular: Rate/Rhythm: regular rate Gastrointestinal (Abdomen): soft, non-tender, non-distended Results & Data Vital Signs (Past 12 Hours) Vital Signs Temp Pulse Resp BP Pulse Ox 04/09/19 22:56 37.0 C 76 16 127/74 95 Laboratory Results 04/10/19 04/10/19 04/10/19 Range/Units 06:20 06:19 06:19 WBC 14.00 H (4.8-10.8) K/uL RBC 4.46 L (4.7-6.1) M/uL Hgb 15.0 (14.0-18.0) g/dL Hct 43.0 (42-52) % MCV 96.4 (80-100) fL MCH 33.6 (25-34) pg MCHC 34.9 (32-36) g/dL RDW Std Deviation 47.6 H (36.4-46.3) fL RDW Coeff of Aiyana 13.4 (11.5-14.5) % Plt Count 438 H (130-400) K/uL MPV 8.7 (7.4-10.4) fL Immature Gran % (Auto) 1.9 % Neut % (Auto) 69.6 % Lymph % (Auto) 14.7 % [place] % (Auto) 9.5 % Eos % (Auto) 3.9 % Baso % (Auto) 0.4 % Immature Gran # (Auto) 0.26 H (0.00-0.02) K/uL Neut # (Auto) 9.76 H (1.4-6.5) K/uL Lymph # (Auto) 2.06 (1.2-3.4) K/uL [place] # (Auto) 1.33 H (0.11-0.59) K/uL Eos # (Auto) 0.54 H (0-0.5) K/uL Baso # (Auto) 0.05 (0-0.2) K/uL Magnesium 2.1 (1.8-2.4) mg/dl Procalcitonin 0.08 (0-0.5) ng/ml Diagnostic Findings (04/09/19) CT Abdomen/Pelvis: TECHNIQUE: Multiaxial CT images of the abdomen and pelvis were performed following the use of intravenous and oral contrast. A dose lowering technique was utilized adhering to the principles of ALARA. COMPARISON STUDY: Abdomen and pelvis CT 04/06/2019. FINDINGS: Focal short segment of thickening within the mid sigmoid colon with pericolonic fat stranding consistent with acute sigmoid diverticulitis. A few scattered pericolonic abscesses are again noted. These are similar to the prior study. Dominant abscess measures 2.2 cm. Mild left-sided bladder wall thickening which may be reactive to the adjacent pericolonic inflammatory change. No pneumoperitoneum or pneumatosis at this time. No evidence for bowel obstruction. Left diaphragmatic defect/hernia containing a small portion of the spleen and this remains unchanged. Old, healed left-sided rib fractures. Left basilar scar like densities are again noted. Postoperative changes within the bilateral hips. The liver, gallbladder, pancreas, kidneys, and adrenal glands are unremarkable. No hydronephrosis. No retroperitoneal lymphadenopathy. Fatty atrophy of the right iliopsoas muscle. IMPRESSION: 1. No significant change in the acute sigmoid diverticulitis with multiple adjacent small abscesses measuring up to 2.2 cm. Follow-up colonoscopy is recommended once the diverticulitis has resolved to exclude the less likely of an underlying colonic mass. 2. Mild bladder wall thickening. This may be reactive to the adjacent diverticulitis. 3. No change in the left diaphragmatic hernia containing a small portion of the spleen. This is likely due to old posttraumatic changes given the adjacent rib fractures.
[2019-04-10] MEDS: NSS + 20MEQ KCL 20 MEQ/1,000 ML BAG IV SCH ×2 (11:40→19:29)
--- NOTE | 2019-04-10 13:16 | Infectious Disease Consult ---
Date of Consultation April 10, 2019 Assessment & Plan (1) Diverticulitis of intestine with abscess: continue IV abx for now, clinically responding to current therapy, when on full diet, can change to po cipro and flagyl. would give 21 days total. will need outpatient colonoscopy, he states he has discussed this with surgery and will schedule. History of Present Illness Attending Physician: Rudy Jonathan Clemencia pt admitted with diverticulitis. 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 saw pcp, ct done and showed diverticulitis, sent to ER, 04/06 ct showed diverticulitis sigmoid with abscess. surgery eval, no plans for OR, placed on cipro and flagyl, tolerating well. blood cultures done, negative. afebrile. repeat ct done 04/09, unchanged, 2.2 cm abscess noted. wbc elevated at 14, procalcitonin negative. UA 04/06 negative. pt oob to chair, stats he is tolerating soft food, ready for full diet. states abd pain has resolved, states he feels ready to go home but was told he needs to stay 1 more night. currently denies f/c, no cp, sob, cough, no n/v/d/abd pain, eating well, asking for advancement of diet. no gu symptoms. 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 Beliefs That Will Affect Care: None Current Living Situation: Spouse Other Information That Helps Us Care for You: No Feels Safe at Home: Yes Safety Concerns: Feels Safe At This Time Smoking Status: Heavy tobacco smoker Tobacco Type: cigarettes Do You Dip or Chew Tobacco: No Tobacco Cessation Education Requested by Patient: No Hx Alcohol Use: Yes Alcohol type: beer Hx Substance Use: No Review of Systems Review of Systems: All systems reviewed & are unremarkable except as noted in HPI & below Physical Exam Constitutional: WD/WN, vitals as above Eyes: PERRL, conjunctivae normal, anicteric sclerae ENMT: external ear and nose normal, oropharynx normal Neck: normal visual inspection Respiratory: normal respiratory effort, lungs clear to auscultation Cardiovascular: RRR, no murmur, no edema Gastrointestinal (Abdomen): normal bowel sounds, soft, nontender, no hepatosplenomegaly Musculoskeletal: no cyanosis or clubbing, extremities motor strength 5/5 Skin: no rashes, warm and dry Psychiatric: A+Ox3, euthymic affect Results & Data Laboratory Results Microbiology 04/06/19 20:33 Blood Aerobic Blood Culture - Preliminary No growth in Aerobic bottle after 48 hours. 04/06/19 20:33 Blood Anaerobic Blood Culture - Final 04/06/19 20:33 Blood Aerobic Blood Culture - Preliminary No growth in Aerobic bottle after 48 hours. 04/06/19 20:33 Blood Anaerobic Blood Culture - Preliminary No growth in Anaerobic bottle after 48 hours. (1) Diverticulitis of intestine with abscess Diverticulitis bleeding: without bleeding Diverticulitis site: large intestine Qualified Code(s): K57.20 - Diverticulitis of large intestine with perforation and abscess without bleeding
--- NOTE | 2019-04-18 09:47 | Discharge Summary ---
Date of Service April 10, 2019 Admission HPI Per Admitting Provider The patient is a 58-year-old male who was seen by his PCP Dr. Cope earlier in the day, had been found to have sigmoid diverticulitis with an abscess on outpatient CT, and referred into the emergency department for further evaluation assessment. The patient notes the onset of abdominal pain in his left lower quadrant about 6 days ago, but had in particular worsened over the past 24 hours, and more recently now pain is somewhat improved prior to treatment. He has had no previous occurrence this type of pain. He has not had any recent travels or sick exposures, and has not had any questionable food intake. Principal Diagnosis Acute Diverticulitis with abscess Discharge Exam The patient appeared well nourished and normally developed. Vital signs as documented. Head exam is unremarkable. normocephalic, atraumatic Neck is without jugular venous distension, thyromegaly, or lymphademopathy Lungs are clear to auscultation and percussion. Cardiac exam reveals Rhythm is regular. First and second heart sounds normal. Abdominal exam reveals normal bowel sounds, no palpation left lower quadrant without rebound or guarding Extremities are nonedematous and both pedal pulses are present Neurologic exam is A&Ox3, no focal deficits, strength is equal bilateral Psychologically seems neither anxious or depressed Skin is warm / Dry Discharge Data Allergies Allergy/AdvReac Type Severity Reaction Status Date / Time No Known Allergies Allergy Verified 04/18/19 09:20 Consultations 04/06/19 20:39 ED Decision to Admit Stat 04/07/19 00:12 Consult Case Management - Discharge Planning Routine 04/09/19 13:07 Consult General Surgery Routine 04/10/19 09:28 Consult Infectious Diseases Routine Ordered Studies 04/09/19 13:24 CT abd pelvis oral and IV con Routine Hospital Course (1) Diverticulitis of intestine with abscess: Acute sigmoid diverticulitis with micro abscesses/left lower quadrant abdominal pain- Patient had minor elevation of his white count since stopping Flagyl we will convert him to Cipro Flagyl in lieu of the Zosyn Famotidine 20 mg IV every 12 hours. Acetaminophen 1 g IV every 8 hours PRN mild pain or temperature. Morphine sulfate 2 mg IV every 4 hours as needed severe pain Since symptoms have improved will advance to full liquid diet. On 04/09, patient had improved on cipro and flagyl. Patient though is having increased WBC. Will repeat ct scan and obtain gen surg consult. Will hold discharge. will recheck labs in AM. On 04/10, patient continues to improve clinically. Clinically responding to current therapy, Will switch to po cipro and flagyl. Give 21 days total. - f/u in general surgery clinic in 2 weeks - Colonoscopy as an outpatient once acute episode has resolved (2) Abdominal pain, left lower quadrant: See above improving Total Time Total Time Spent Total Time Spent (In Minutes): 32 Total Time Includes: Examination of the Patient, Discharge Planning and Medication Reconciliation Discharge Plan Discharge Items Patient Disposition: Home - Self-Care Reason For Visit: DIVERTICULITIS W/ MICROPERFORATION ABSCESSES Discharge Diagnosis: Diverticulitis Discharge Goals: Decrease discomfort Activity: Resume your previous activity Non-emergency contact: Primary Care Provider Call non-emergency contact if: you have any medication questions Follow-up/Referrals: Rojelio Cope MD [Primary Care Provider] - Diet: Low Fiber Diet Comment: Low residue diet Addtl Provider Instructions: You were treated for diverticulitis. You were placed on IV antibiotics. You responded to the medicine and will continue antibiotics by mouth for 17 more days. Will have you followup with General surgery as an outpatient. What You Can Eat Grains Refined or enriched white breads and plain crackers, such as saltines or Drea toast (no seeds) Cooked cereals, like farina, cream of wheat, and grits Cold cereals, like puffed rice and corn flakes White rice, noodles, and refined pasta Fruits and Vegetables The skin and seeds of many fruits and vegetables are full of fiber, so you need to peel them and avoid the seeds. These vegetables are OK: Well-cooked fresh vegetables or canned vegetables without seeds, like asparagus tips, beets, green beans, carrots, mushrooms, spinach, squash (no seeds), and pumpkin Cooked potatoes without skin Tomato sauce (no seeds) Fruits on the good list include: Ripe bananas Soft cantaloupe Honeydew Canned or cooked fruits without seeds or skin, like applesauce or canned pears Avocado Milk and Dairy They're OK in moderation. Milk has no fiber, but it may trigger symptoms like diarrhea and cramping if you're lactose intolerant. If you are (meaning you have trouble processing dairy foods), you could take lactase supplements or buy lactose-free products. Meats Animal products don't have fiber. You can eat beef, pineda, chicken, fish (no bones), and pork, as long as they're lean, tender, and soft. Eggs are OK, too. Fats, Sauces, and Condiments These are all on the diet: Margarine, butter, and oils Mayonnaise and ketchup Sour cream Smooth sauces and salad dressing Soy sauce Clear jelly, honey, and syrup Not to eat Coconut, seeds, and nuts, including those found in bread, cereal, desserts, and candy Whole-grain products, including breads, cereals, crackers, pasta, rice, and kasha Raw or dried fruits, like prunes, berries, raisins, figs, and pineapple Most raw vegetables Certain cooked vegetables, including peas, broccoli, winter squash, [place] sprouts, cabbage, corn (and cornbread), onions, cauliflower, potatoes with skin, and baked beans Beans, lentils, and tofu Tough meats with gristle, and smoked or cured deli meats Cheese with seeds, nuts, or fruit Crunchy peanut butter, jam, marmalade, and preserves Pickles, olives, relish, sauerkraut, and horseradish Popcorn Fruit juices with pulp or seeds, prune juice, and pear nectar Prescriptions: New ciprofloxacin HCl 500 mg tablet 500 mg PO Q12H Qty: 34 RF: 0 metronidazole 500 mg tablet 500 mg PO TID 17 Days Qty: 52 RF: 0 Continued multivitamin Tablet 1 tab PO QAM RF: 0 No Action Chantix Starting Month Box 0.5 mg (11)- 1 mg (42) Tablets,Dose Pack 1 ea PO UD RF: 0 Visit Report Forms: Smoking Cessation Stand-Alone Forms: [facility]Other Patient Handouts: Psyllium Oral suspension, Hypertension Control, Eat Healthy, Risk Factors High Blood Pressure, Potassium, Gout, Quit Smoking Plan, Quit Smoking Get Support Discharge Orders: Discharge Order (Routine); Ordered 04/10/19 Ordered By: Rudy Khanna Admission Data Admit Date/Time: 04/06/19 22:36 Attending Provider: Rudy Khanna Admit Provider: Jam Mercer Primary Care Provider: Rojelio Cope Other Providers: Jam Mercer ; Soni Anderson ; Emily Frazier Service: Medical Other Interventions: Discharge Summary Assessment (RN) Last Done: 04/10/19 19:37 DC Date/Time DO NOT enter until pt leaves facility: 04/10/19 20:21
== END 2019-04-10 20:21 | disposition home or self-care (01) | DRG 392 ==
LOC: ED 19:29 → 3W 22:36 → SUATTDRO 22:36 → 3W 23:35
DX: R31.0 Gross hematuria; F17.200 Nicotine dependence, unspecified, uncomplicated; R10.32 Left lower quadrant pain; K57.80 Diverticulitis of intestine, part unspecified, with perforation and abscess without bleeding